=== PATIENT | male | born 1945 | race Caucasian/White ===

== ENCOUNTER 2018-10-16 06:20 | Day surgery (SDC) | payer MEDICARE, OTHER ==
[~2018-10-16] VITALS: Ht 168.9 cm; Wt 85.5 kg
[2018-10-16] VITALS (17 sets, daily range): BP systolic 14–155; BP diastolic 58–74; PULSE 64–93; RESP 16–24; Ht 168.9 cm; Wt 85.5 kg
[2018-10-16] MEDS ORDERED: CEFAZOLIN 2 GM/50 ML (PMX) 50 ML IVPB ONE (08:00)
[2018-10-16] MEDS ORDERED: SOD CHLORIDE 0.9% 1,000 ML IV SCH (08:00)
--- NOTE | 2018-10-16 08:29 | PREAC ---
Date/Time of Note Date/Time of Note DATE: 10/16/18 TIME: 08:27 Anesthesia Eval and Record Evaluation Time Pre-Procedure Interview DATE: 10/16/18 TIME: 08:27 Age 73 Sex male NPO: 8 hrs Preoperative diagnosis Incarcerated ventral hernia Planned procedure Laparoscopic hernia repair with mesh Past Medical History Past Medical History: None Surgery & Anesthesia Issues No known issue Meds Anticoagulation: No Beta Renzo within 24 hr: No Reason Beta Renzo not given: Pt. not on B-Renzo No Active Prescriptions or Reported Meds Current Medications Sodium Chloride 1,000 ml @ 75 mls/hr [id number] IV ; Start 10/16/18 at 08:00; Stop 10/16/18 at 21:19 Cefazolin Sodium/ Dextrose 50 ml @ 100 mls/hr PRE-OP ONCE IVPB ; Start 10/16/18 at 08:00; Stop 10/16/18 at 08:29 Meds reviewed: Yes Allergies Coded Allergies: No Known Allergies (Verified Allergy, Unknown, 10/16/18) Allergies Reviewed: Yes Labs/Studies Labs Reviewed: Reviewed by anesthesiologist test: N/A Pre-procedure Exam Last vitals Vital Signs Date Temp Pulse Resp B/P (MAP) Pulse Ox O2 O2 Flow FiO2 Time Delivery Rate 10/16/18 98.4 64 16 135/62 98 Room Air 07:13 (86) Airway: Adequate mouth opening Mallampati: Mallampati II Teeth: Abnormal (Missing upper and lower front teeth) Lung: Normal Heart: Normal ASA Physical Status ASA physical status: 1 Emergency: None Planned Anesthetic General/MAC: ETT Planned Pain Management Parenteral pain med Pre-operative Attestations Prior to commencing anesthesia and surgery, the patient was re-evaluated, there was verification of: *The patient's identity *The results of appropriate recent lab work and preoperative vital signs *The above evaluation not changing prior to induction *Anesthetic plan, risk benefits, alternative and complications discussed with patient/family; questions answered; patient/family understands, accepts and wishes to proceed. GEORGIE PIRES MD October 16, 2018 08:29
[2018-10-16] MEDS ORDERED: BUPIVACAINE 0.25% (MPF) 30 ML INJ ONE (08:37)
[2018-10-16] MEDS ORDERED: POLYMYXIN/BACITRACIN 1L IRRIG ONE (08:37)
[2018-10-16] MEDS ORDERED: LIDOCAINE 2% (SDV) 5 ML INJ ONE (08:48)
[2018-10-16] MEDS ORDERED: GLYCOPYRROLATE 0.4 MG INJ ONE ×2 (08:48→09:38)
[2018-10-16] MEDS ORDERED: PROPOFOL 20 ML ONE (08:48)
[2018-10-16] MEDS ORDERED: SUCCINYLCHOLINE CHLORIDE 100 MG/5 ML SYG IV ONE (08:48)
[2018-10-16] MEDS ORDERED: ROCURONIUM 50 MG INJ ONE (08:48)
[2018-10-16] MEDS ORDERED: NEOSTIGMINE 3 MG/3 ML SYRINGE ONE ×2 (08:48→09:38)
[2018-10-16] MEDS ORDERED: MEPERIDINE 100 MG INJ ONE (08:48)
[2018-10-16] MEDS ORDERED: ONDANSETRON 4 MG INJ IV PRN (09:30)
[2018-10-16] MEDS ORDERED: DIPHENHYDRAMINE 50 MG INJ IV PRN (09:30)
[2018-10-16] MEDS ORDERED: hydrALAzine 20 MG INJ IV PRN (09:30)
[2018-10-16] MEDS ORDERED: MIDAZOLAM 1 MG/ML 2 ML INJ IV PRN (09:30)
[2018-10-16] MEDS ORDERED: HYDROmorphONE 1 MG/5 ML IV SYRINGE IV PRN ×3 (09:30)
[2018-10-16] MEDS ORDERED: MEPERIDINE 25 MG INJ IV PRN (09:30)
[2018-10-16] MEDS ORDERED: LABETALOL HCL 20MG INJ IV PRN (09:30)
[2018-10-16] MEDS ORDERED: EPHEDrine 25 MG/5 ML SYG IV PRN (09:30)
[2018-10-16] MEDS ORDERED: METOCLOPRAMIDE 10 MG INJ IV PRN (09:30)
[2018-10-16] MEDS ORDERED: OXYCODONE/ACETAMINOPHEN (5/325) TAB PO PRN ×2 (09:30)
[2018-10-16] MEDS ORDERED: FENTAnyl 50 MCG/ML VIAL IV PRN ×3 (09:30)
[2018-10-16] MEDS ORDERED: ATROPINE 1 MG/10 ML SYRINGE ONE (09:33)
[2018-10-16] MEDS ORDERED: EPHEDrine 25 MG/5 ML SYG ONE (09:33)
--- NOTE | 2018-10-16 10:05 | OPR ---
Date/Time of Note Date/Time of Note DATE: 10/16/18 TIME: 10:02 Operative Report Procedure Date: October 16, 2018 Preoperative Diagnosis incarcerated ventral hernia Postoperative Diagnosis same Operation/Procedure Performed 1. laparoscopic incarcerated ventral hernia 2. implantation of 15 x 15 cm polypropyelen mesh 3. therapeutic injection of subcutaneous local anesthesia 4. laparoscopic lysis of adhesions Surgeon see signature line Assembler Arranger none Anesthesia Type: general Estimated Blood Loss: 0 - 10 ml's Transfusion none Specimen none Grafts/Implants none Complications none Pt Condition Post Procedure: stable Indications This is a 73-year-old male with an incarcerated ventral hernia. He requests surgical repair. Risks alternatives benefits and personal were discussed the patient. Patient expressed understanding consents to the operation. Procedure Description Patient is taken to the OR and prepped and draped in usual sterile fashion. Surgical time was performed. IV antibiotics were given. Left upper quadrant 5 mm transverse incision was made with a 15 blade. Using a 5 mm optical trocar optical entry is performed. Pneumoperitoneum is established. Left flank 12 mm optical trochars placed under direct visualization. Left lower quadrant 5 mm optical trochars placed under direct visualization. Upon initial inspection there is a very large incarcerated ventral hernia. Extensive laparoscopic lysis of adhesions was performed to meticulously lysed adhesions surrounding and into the incarcerated ventral hernia. This is then manually reduced. A large hernia defect is identified and closed primarily using interrupted #1 Vicryl using Endo Close and laparoscopic techniques. After primary closure of the hernia defect underlay mesh with a 15 x 15 cm polypropylene mesh was secured in place with secure strap. Approximately 45 cm of coverage in all directions were ensured. Good hemostasis established. All ports were removed under direct visualization. Skin is closed and skin stacey. Therapeutic subcutaneous local anesthesia was injected at the incision site. Dry dressings were applied. Reynaldo SANTOS October 16, 2018 10:05
[2018-10-16] MEDS ORDERED: HYDROCODONE/APAP (5/325) TAB PO ONE (10:30)
--- NOTE | 2018-10-16 10:49 | PAC ---
Date/Time of Note Date/Time of Note DATE: 10/16/18 TIME: 10:48 Post-Anesthesia Notes Post-Anesthesia Note Last documented vital signs Vital Signs Date Temp Pulse Resp B/P (MAP) Pulse Ox O2 O2 Flow FiO2 Time Delivery Rate 10/16/18 80 20 14/66 (49) 100 Mask 10:23 10/16/18 97.8 10:07 Activity: WNL Respiratory function: WNL Cardiovascular function: WNL Mental status: Baseline Pain reasonably controlled: Yes Hydration appropriate: Yes Nausea/Vomiting absent: Yes Comments BT: 98.4 GEORGIE PIRES MD October 16, 2018 10:49
== END 2018-10-16 14:10 | disposition home or self-care (01) ==
LOC: SDS 06:20
PROVIDERS: ATTEND Surgery
DX: K43.6 Other and unspecified ventral hernia with obstruction, without gangrene (principal)
CPT/HCPCS: 49653; J0461; J1170; J2175; J2710